=== PATIENT | male | born 1930 | race Caucasian/White ===

== ENCOUNTER 2021-04-12 09:53 | Emergency (ER) | payer MEDICARE ==
[~2021-04-12] VITALS: Ht 167.6 cm; Wt 70.6 kg
[~2021-04-12 09:53] MED LIST: CEFD300C37 PO
--- NOTE | 2021-04-12 10:37 | NUR ---
PT CAME IN TODAY CO OF INTERMITTENT CHEST PAIN DESRIBED PRESSURE AT 7/10. 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 NO DRAINAGE FROM CATH-BLOOD IN CATHETER NOTED) SON REPORTS PATIENT HAS BEEN DRAINING URINE FROM PENIS
--- NOTE | 2021-04-12 10:41 | NUR ---
BLADDER SCAN OF 0ML (ZERO)
--- NOTE | 2021-04-12 10:50 | NUR ---
Lab at bedside poc updated by erp- patient to have ct and ir to troubleshoot sp catheter
[2021-04-12 11:10] LABS: BASOPHILS % (AUTO) 0 % (0-1); EOSINOPHILS % (AUTO) 1 % (1-7); LYMPHOCYTES % (AUTO) 11 % (22-44); MEAN CORPUSCULAR HEMOGLOBIN 31.7 pg (27.5-34.5); MEAN PLATELET VOLUME 7.4 fL (7.4-10.4); MONOCYTES % (AUTO) 7 % (2-9); NEUTROPHILS % (AUTO) 81 % (42-75); PLATELET COUNT 189 x10^3/uL (130-400); RED BLOOD COUNT 4.01 x10^6/uL (4.38-5.82)
--- NOTE | 2021-04-12 11:20 | NUR ---
cxr at bedside at 11:[address]/IR at 11:20
[2021-04-12 11:21] LABS: ALBUMIN 3.1 g/dL (3.4-5.0); ANION GAP 3 mmol/L (5-15); CALCIUM 8.7 mg/dL (8.5-10.1); CHLORIDE 104 mmol/L (98-107); CREATININE 1.73 mg/dL (0.7-1.3)
[2021-04-12 11:25] LABS: TROPONIN I < 0.015 ng/mL (0.000-0.045)
[2021-04-12] MEDS ORDERED: LIDOCAINE 2%,20 ML JEL.PF.APP MM ONE (12:19)
[2021-04-12] MEDS ORDERED: SODIUM CHLORIDE 0.9% 1,000ML IVBOLUS ONE (13:00)
[2021-04-12] MEDS ORDERED: SODIUM CHLORIDE FLUSH 10ML SYR IVF ONE (13:00)
--- NOTE | 2021-04-12 13:20 | NUR ---
NO ILL EFFECTS POST MEDICATION EDUCATED ON UTI PREVENTION. PROVIDED WITH REFERRAL LIST FOR DENTAL
[2021-04-12 14:00] VITALS: BP 113/63
== END 2021-04-12 14:20 | disposition home or self-care (01) ==
LOC: ED 10:36
DX: R07.89 Other chest pain (principal); T83.028A Displacement of other urinary catheter, initial encounter; R94.31 Abnormal electrocardiogram [ECG] [EKG]; I10 Essential (primary) hypertension; Y82.9 Unspecified medical devices associated with adverse incidents; Z87.438 Personal history of other diseases of male genital organs
CPT/HCPCS: 36415; 71045; 72192; 80048; 82040; 84484; 85025; 93005; 96360; 99285; J7030

== ENCOUNTER 2021-05-11 22:22 | Emergency (ER) | payer MEDICARE ==
[~2021-05-11] VITALS: Ht 172.7 cm; Wt 60.0 kg
[2021-05-11 23:21] LABS: BASOPHILS % (AUTO) 1 % (0-1); EOSINOPHILS % (AUTO) 6 % (1-7); LYMPHOCYTES % (AUTO) 31 % (22-44); MEAN CORPUSCULAR HGB CONC 33.9 g/dL (33.2-36.2); MONOCYTES % (AUTO) 10 % (2-9); NEUTROPHILS % (AUTO) 52 % (42-75); PLATELET COUNT 201 x10^3/uL (130-400); RED BLOOD COUNT 4.08 x10^6/uL (4.38-5.82); RED CELL DISTRIBUTION WIDTH 14.6 % (9.4-14.8)
[2021-05-11 23:26] LABS: ALANINE AMINOTRANSFERASE 18 U/L (12-78); ALBUMIN 3.2 g/dL (3.4-5.0); ANION GAP 5 mmol/L (5-15); CHLORIDE 107 mmol/L (98-107); CREATININE 1.62 mg/dL (0.7-1.3)
[2021-05-11 23:29] LABS: ALKALINE PHOSPHATASE 103 U/L (45-117); BILIRUBIN,TOTAL 0.4 mg/dL (0.2-1.0); INTERNATIONAL NORMALIZED RATIO 1.03 (0.93-1.1); TOTAL PROTEIN 7.4 g/dL (6.4-8.2)
--- NOTE | 2021-05-11 23:31 | NUR ---
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
--- NOTE | 2021-05-11 23:48 | NUR ---
CC OF BLOOD IN URINE SINCE TODAY. PT HAS WOODS IN, LAST CHANGED 04/17. URINE MERLOT COLOR IN WOODS BAG. AT BEDSIDE. STARTED TAKING ASPIRIN LAST WEEK, HAD PT STOP RECENTLY. SEES BJ SERRANO, URO.
--- NOTE | 2021-05-12 00:41 | NUR ---
UA COLLECTED, ONLY ABLE TO COLLECT VERY SMALL AMOUNT OF URINE. LAB AWARE, WILL LET THIS RN KNOW IF IT'S TOO LITTLE OF AMOUNT.
[2021-05-12 00:46] LABS: MICROSCOPIC INDICATED
[2021-05-12] MEDS ORDERED: CEFDINIR 300 MG CAPSULE ONE (01:11)
[2021-05-12 01:15] VITALS: BP 126/68
[2021-05-12] MEDS ORDERED: CEFDINIR 300 MG CAPSULE PO ONE (01:30)
--- NOTE | 2021-05-12 01:49 | NUR ---
Patient and spouse given discharge instructions and they have confirmed that they understand the instructions. Patient wheeled to dc desk, able to stand and transfer, which is baseline. NAD, all questions answered appropriately, denies additional needs at this time. No personal belongings left in room after discharge.
== END 2021-05-12 01:51 | disposition home or self-care (01) ==
LOC: ED 23:49
DX: N30.01 Acute cystitis with hematuria (principal); I10 Essential (primary) hypertension
CPT/HCPCS: 36415; 80053; 81001; 85025; 85610; 85730; 87086; 99283